=== PATIENT | female | born 1995 | race Caucasian/White ===

== ENCOUNTER 2017-02-04 15:36 | Emergency (ER) | payer OTHER ==
[~2017-02-04] VITALS: Ht 160 cm; Wt 80.7 kg
[2017-02-04 16:50] VITALS: BP 115/82
== END 2017-02-04 17:03 | disposition home or self-care (01) ==
LOC: ED 15:36
DX: J11.1 Influenza due to unidentified influenza virus with other respiratory manifestations (principal)